=== PATIENT | male | born 1975 | race Caucasian/White ===

== ENCOUNTER 2021-07-10 09:34 | Inpatient (IN) | payer MEDICAID ==
[~2021-07-10] VITALS: Ht 182.9 cm; Wt 150.0 kg
[2021-07-10] MEDS ORDERED: aspirin 81mg tab.chew PO ONE (09:50)
[2021-07-10] MEDS ORDERED: nitroGLYCERIN 0.4mg SUBLingual tab SL PRN (09:50)
--- NOTE | 2021-07-10 09:52 | NUR ---
LAB AT BEDSIDE
[2021-07-10 10:06] LABS: BASOPHILS % (AUTO) 0.5 % (0-1); EOSINOPHILS # (AUTO) 0.1 X10'3 (0-0.9); EOSINOPHILS % (AUTO) 0.9 % (0-6); HEMATOCRIT 40.3 % (42.0-52.0); HEMOGLOBIN 13.6 g/dl (14.0-17.9); LYMPHOCYTES # (AUTO) 1.1 X10'3 (1.1-4.8); LYMPHOCYTES % (AUTO) 15.3 % (21-51); MEAN CORPUSCULAR HEMOGLOBIN 28.7 PG (27.0-31.0); MEAN CORPUSCULAR HGB CONC 33.7 g/dL (33.0-36.5); MEAN CORPUSCULAR VOLUME 85.2 FL (78-98); MEAN PLATELET VOLUME 7.5 FL (7.4-10.4); MONOCYTES # (AUTO) 0.7 X10'3 (0-0.9); MONOCYTES % (AUTO) 10.7 % (2-12); NEUTROPHILS % (AUTO) 72.6 % (42-75); PLATELET COUNT 174 X10'3 (140-440); RED BLOOD COUNT 4.73 X10'6 (4.70-6.10); RED CELL DISTRIBUTION WIDTH 14.2 % (11.5-14.5); WHITE BLOOD COUNT 6.9 X10'3 (4.5-11.0)
[2021-07-10 10:23] LABS: ALANINE AMINOTRANSFERASE 204 U/L (12-78); ALBUMIN 4.2 G/DL (3.4-5.0); ALBUMIN/GLOBULIN RATIO 1.2 (1.1-1.5); ALKALINE PHOSPHATASE 179 IU/L (46-116); ANION GAP 15 (8-16); ASPARTATE AMINO TRANSFERASE 206 U/L (10-37); BILIRUBIN,TOTAL 1.2 MG/DL (0.1-1.0); BLOOD UREA NITROGEN 16 MG/DL (7-18); CALCIUM 9.3 MG/DL (8.5-10.1); CHLORIDE 101 MMOL/L (99-107); GLUCOSE 100 MG/DL (70-104); POTASSIUM 4.2 MMOL/L (3.5-5.1); SODIUM 138 MMOL/L (135-145); TOTAL CARBON DIOXIDE 22.3 MMOL/L (24-32); TOTAL PROTEIN 7.6 G/DL (6.4-8.2); eGFR > 90 ML/MIN
[2021-07-10 10:53] LABS: D-DIMER 8.52 MG/L FEU (0-0.50)
[2021-07-10] MEDS ORDERED: iohexol 350MG/ML 100ml bottle IV ONE (11:23)
[2021-07-10] MEDS ORDERED: piperacillin/tazo 3.375gm/50ml 50 ML IV ONE (13:10)
[2021-07-10] MEDS ORDERED: SINCALIDE IV ONE (13:20)
[2021-07-10] MEDS ORDERED: NORMAL SALINE IV ONE (13:20)
--- NOTE | 2021-07-10 13:52 | NUR ---
pt to hida scan via wheelchair.
[2021-07-10] MEDS ORDERED: ROSU40TA22 PO (14:24)
[2021-07-10] MEDS ORDERED: PIOG45TA65 PO (14:24)
[2021-07-10] MEDS ORDERED: EMPA25TA PO (14:24)
[2021-07-10] MEDS ORDERED: CARV25TA2 PO (14:24)
[2021-07-10] MEDS ORDERED: HYDR50TA65 PO (14:24)
[2021-07-10] MEDS ORDERED: EZET10TA48 PO (14:24)
[2021-07-10] MEDS ORDERED: LOSA100T57 PO (14:24)
[2021-07-10] MEDS ORDERED: HYDROmorphone inj. 0.5 MG/0.5 ML DISP.SYRIN IV PRN (14:45)
[2021-07-10] MEDS ORDERED: HYDROmorphone/PF 0.2 MG/ML SYRINGE IV PRN (14:45)
[2021-07-10] MEDS ORDERED: magnesium hydroxide 30ml (MOM) UD suspension PO PRN (14:45)
[2021-07-10] MEDS ORDERED: magnesium 4gm in 100ml NS 100 ML IV PRN (14:45)
[2021-07-10] MEDS ORDERED: ondansetron/PF 4mg/2ml inj IV PRN (14:45)
[2021-07-10] MEDS ORDERED: potassium Cl 20 mEq SR tablet PO PRN ×2 (14:45)
[2021-07-10] MEDS ORDERED: mag hydrox/Alum hydrox/simeth 30ml oral suspension PO PRN (14:45)
[2021-07-10] MEDS ORDERED: bisacodyl 10mg suppository rectal RC PRN (14:45)
[2021-07-10] MEDS ORDERED: magnesium Cl slow-release 64mg tablet PO PRN (14:45)
[2021-07-10] MEDS ORDERED: potassium CL 10mEq/100ml bag 100 ML IV PRN (14:45)
[2021-07-10] MEDS ORDERED: acetaminophen 325mg tablet PO PRN (14:45)
[2021-07-10] MEDS ORDERED: metoclopramide 5 mg/ml inj IV PRN (14:45)
[2021-07-10] MEDS ORDERED: ondansetron 4mg rapidly disintigrating tab PO PRN (14:45)
[2021-07-10] MEDS ORDERED: magnesium 2GM in 50ml NS 50 ML IV PRN (14:45)
--- NOTE | 2021-07-10 15:39 | NUR ---
given at [facility]
[2021-07-10] MEDS ORDERED: INSU100I31 SQ (16:07)
[2021-07-10] MEDS ORDERED: SEMA1PEN3 SQ (16:07)
[2021-07-10 16:12] LABS: CHOL/HDL RATIO 2.5 (0.00-4.99); CHOLESTEROL 82 MG/DL (0-200); HDL CHOLESTEROL 33 MG/DL (35-60); LDL CHOLESTEROL 34 MG/DL (50-100); MAGNESIUM 1.9 MG/DL (1.5-2.4); TRIGLYCERIDES 102 MG/DL (20-135)
[2021-07-10] MEDS ORDERED: MESSAGE TO PHARMACY PO ONE (16:25)
[2021-07-10] MEDS ORDERED: insulin Lispro (HumaLOG) vial - multi-dose SQ SCH (16:25)
[2021-07-10] MEDS ORDERED: PERFLUTREN PROTEIN-A MICROSPHR (Optison) 0.22 MG/ML 3ML VIAL IV ONE (16:25)
[2021-07-10] MEDS ORDERED: glucagon, human recombinant 1mg kit SUBCUT PRN (16:25)
[2021-07-10] MEDS ORDERED: dextrose ORAL solution 15 GM/59 ML bottle PO PRN ×2 (16:25)
[2021-07-10] MEDS ORDERED: dextrose 50%-water 50ml dispensing syringe IV PRN ×2 (16:25)
[2021-07-10 16:42] LABS: HEMOGLOBIN A1C 6.3 % (4.5-6.2)
[2021-07-10 17:36] LABS: APTT 29 SECONDS (22-32)
[2021-07-10] MEDS: docusate sod 100mg capsule PO SCH (19:09)
[2021-07-10] MEDS: K and/or MAG REPLACEMENT MC SCH (19:09)
[2021-07-10] MEDS: carVEDilol 12.5mg tablet PO SCH (20:08)
[2021-07-10] MEDS: hydrOXYzine 25 MG tablet PO SCH (20:08)
[2021-07-10 21:00] VITALS: BP 128/78
[2021-07-10] MEDS: insulin glargine (Lantus) pen - multi-dose SQ SCH (21:00)
[2021-07-10] MEDS ORDERED: temazepam 15mg capsule PO PRN (21:00)
[2021-07-11] VITALS (8 sets, daily range): BP systolic 104–148; BP diastolic 72–98
--- NOTE | 2021-07-11 06:15 | NUR ---
Patient in room [facility] 348. I have received report from Morro MULLIGAN Traveler and had the opportunity to ask questions and assume patient care.
[2021-07-11 06:22] LABS: BASOPHILS % (AUTO) 0.3 % (0-1); EOSINOPHILS # (AUTO) 0.1 X10'3 (0-0.9); EOSINOPHILS % (AUTO) 1.2 % (0-6); HEMATOCRIT 35.7 % (42.0-52.0); HEMOGLOBIN 12.2 g/dl (14.0-17.9); LYMPHOCYTES # (AUTO) 1.2 X10'3 (1.1-4.8); LYMPHOCYTES % (AUTO) 18.9 % (21-51); MEAN CORPUSCULAR HEMOGLOBIN 29.1 PG (27.0-31.0); MEAN CORPUSCULAR VOLUME 85.4 FL (78-98); MONOCYTES # (AUTO) 0.7 X10'3 (0-0.9); MONOCYTES % (AUTO) 10.9 % (2-12); NEUTROPHILS # (AUTO) 4.3 X10'3 (1.8-7.7); NEUTROPHILS % (AUTO) 68.7 % (42-75); PLATELET COUNT 140 X10'3 (140-440); RED BLOOD COUNT 4.18 X10'6 (4.70-6.10); RED CELL DISTRIBUTION WIDTH 14.5 % (11.5-14.5); WHITE BLOOD COUNT 6.2 X10'3 (4.5-11.0)
[2021-07-11 06:23] LABS: APTT 31 SECONDS (22-32)
--- NOTE | 2021-07-11 06:28 | NUR ---
PT HAS BEEN NPO SINCE MIDNIGHT
[2021-07-11 06:30] LABS: ALANINE AMINOTRANSFERASE 189 U/L (12-78); ALBUMIN 3.5 G/DL (3.4-5.0); ALBUMIN/GLOBULIN RATIO 1.2 (1.1-1.5); ALKALINE PHOSPHATASE 152 IU/L (46-116); ANION GAP 12 (8-16); ASPARTATE AMINO TRANSFERASE 197 U/L (10-37); BILIRUBIN,TOTAL 0.9 MG/DL (0.1-1.0); BLOOD UREA NITROGEN 14 MG/DL (7-18); BUN/CREATININE RATIO 20.3 (5.4-32.0); CALCIUM 8.6 MG/DL (8.5-10.1); CHLORIDE 103 MMOL/L (99-107); CHOL/HDL RATIO 2.5 (0.00-4.99); CHOLESTEROL 74 MG/DL (0-200); CREATININE 0.69 MG/DL (0.60-1.10); GLUCOSE 67 MG/DL (70-104); HDL CHOLESTEROL 30 MG/DL (35-60); LDL CHOLESTEROL 29 MG/DL (50-100); MAGNESIUM 1.8 MG/DL (1.5-2.4); POTASSIUM 3.8 MMOL/L (3.5-5.1); SODIUM 139 MMOL/L (135-145); TOTAL CARBON DIOXIDE 23.7 MMOL/L (24-32); TOTAL PROTEIN 6.5 G/DL (6.4-8.2); TRIGLYCERIDES 98 MG/DL (20-135); eGFR > 90 ML/MIN
--- NOTE | 2021-07-11 07:32 | NUR ---
Diabetes consult: Noted A1C 6.3 DM ed not indicated at this time. Addendum: 07/11/21 at [address] Amended: Links added.
[2021-07-11] MEDS: Empagliflozin (Jardiance) 25 MG TAB PO SCH (08:00)
[2021-07-11] MEDS: pioglitazone 45mg tablet PO SCH (08:00)
[2021-07-11] MEDS: K and/or MAG REPLACEMENT MC SCH ×2 (08:00→19:47)
[2021-07-11] MEDS: ezetimibe 10mg tablet PO SCH (09:32)
[2021-07-11] MEDS: carVEDilol 12.5mg tablet PO SCH ×2 (09:33→19:50)
[2021-07-11] MEDS: losartan 50mg tablet PO SCH (09:33)
[2021-07-11] MEDS: docusate sod 100mg capsule PO SCH ×2 (09:36→19:50)
[2021-07-11] MEDS: dextrose 5%-1/2 normal saline 1,000 ML IV SCH (09:38)
--- NOTE | 2021-07-11 12:36 | NUR ---
PAGER ID: [phone] MESSAGE: Tommy Craig#[id number]- Pt states he has been trying to quit smoking 30 cigs per day "cold turkey" since 07/06 but still having anxiety. can we get a nicotine patch please. thank you. Neha Dior
[2021-07-11] MEDS ORDERED: fentaNYL/PF 50MCG/1 ML 2ML syringe ONE (14:06)
[2021-07-11] MEDS ORDERED: MIDAZolam 1 MG/ML 5ML VIAL ONE (14:06)
[2021-07-11] MEDS ORDERED: LIDOcaine Viscous 15ml cup ONE (14:07)
--- NOTE | 2021-07-11 18:10 | NUR ---
Problems reprioritized. Patient report given, questions answered & plan of care reviewed with Morro MULLIGAN Traveler.
[2021-07-11] MEDS: insulin glargine (Lantus) pen - multi-dose SQ SCH (21:00)
[2021-07-11] MEDS: hydrOXYzine 25 MG tablet PO SCH (22:19)
[2021-07-12] VITALS: BP 114/74
[2021-07-12] MEDS: dextrose 5%-1/2 normal saline 1,000 ML IV SCH (01:17)
[2021-07-12 06:21] LABS: BASOPHILS % (AUTO) 0.5 % (0-1); EOSINOPHILS # (AUTO) 0.1 X10'3 (0-0.9); EOSINOPHILS % (AUTO) 1.2 % (0-6); HEMATOCRIT 36.1 % (42.0-52.0); HEMOGLOBIN 12.1 g/dl (14.0-17.9); LYMPHOCYTES # (AUTO) 0.9 X10'3 (1.1-4.8); LYMPHOCYTES % (AUTO) 17.2 % (21-51); MEAN CORPUSCULAR HEMOGLOBIN 28.5 PG (27.0-31.0); MEAN CORPUSCULAR HGB CONC 33.6 g/dL (33.0-36.5); MEAN CORPUSCULAR VOLUME 84.9 FL (78-98); MEAN PLATELET VOLUME 7.6 FL (7.4-10.4); MONOCYTES # (AUTO) 0.6 X10'3 (0-0.9); MONOCYTES % (AUTO) 11.3 % (2-12); NEUTROPHILS # (AUTO) 3.8 X10'3 (1.8-7.7); NEUTROPHILS % (AUTO) 69.8 % (42-75); PLATELET COUNT 131 X10'3 (140-440); RED BLOOD COUNT 4.25 X10'6 (4.70-6.10); RED CELL DISTRIBUTION WIDTH 14.3 % (11.5-14.5); WHITE BLOOD COUNT 5.4 X10'3 (4.5-11.0)
[2021-07-12 06:24] LABS: APTT 30 SECONDS (22-32)
[2021-07-12 06:31] LABS: ALANINE AMINOTRANSFERASE 174 U/L (12-78); ALBUMIN 3.3 G/DL (3.4-5.0); ALBUMIN/GLOBULIN RATIO 1.1 (1.1-1.5); ALKALINE PHOSPHATASE 155 IU/L (46-116); ANION GAP 11 (8-16); ASPARTATE AMINO TRANSFERASE 176 U/L (10-37); BILIRUBIN,TOTAL 0.8 MG/DL (0.1-1.0); BLOOD UREA NITROGEN 11 MG/DL (7-18); BUN/CREATININE RATIO 15.9 (5.4-32.0); CALCIUM 8.7 MG/DL (8.5-10.1); CHLORIDE 104 MMOL/L (99-107); CREATININE 0.69 MG/DL (0.60-1.10); GLUCOSE 100 MG/DL (70-104); MAGNESIUM 1.8 MG/DL (1.5-2.4); POTASSIUM 3.9 MMOL/L (3.5-5.1); SODIUM 139 MMOL/L (135-145); TOTAL CARBON DIOXIDE 24.4 MMOL/L (24-32); TOTAL PROTEIN 6.4 G/DL (6.4-8.2); eGFR > 90 ML/MIN
[2021-07-12 07:05] VITALS: BP 132/86
[2021-07-12 07:11] LABS: AFP,SERUM, TUMOR MARKER 3.1 ng/mL (0.0-8.3)
[2021-07-12] MEDS: Empagliflozin (Jardiance) 25 MG TAB PO SCH (08:00)
[2021-07-12] MEDS: K and/or MAG REPLACEMENT MC SCH (08:00)
[2021-07-12] MEDS: pioglitazone 45mg tablet PO SCH (08:00)
[2021-07-12] MEDS: ezetimibe 10mg tablet PO SCH (08:01)
[2021-07-12] MEDS: carVEDilol 12.5mg tablet PO SCH (08:01)
[2021-07-12] MEDS: docusate sod 100mg capsule PO SCH (08:01)
[2021-07-12] MEDS: losartan 50mg tablet PO SCH (08:01)
[2021-07-12 11:39] VITALS: BP 153/73
--- NOTE | 2021-07-12 12:40 | NUR ---
patient stable and appropriate for discharge home. IV removed, all belongings taken from room. All discharge instructions and education given and reviewed with patient, all questions answered. Patient is aware of the need/importance for f/u appointments.
== END 2021-07-12 12:46 | disposition home or self-care (01) | DRG 281 ==
LOC: ER 09:35 → ED HOLD 14:53 → EDBEDREQ 20:00 → SUR 3N 21:00
PROVIDERS: ADMIT Family Medicine; ATTEND Family Medicine
PROC: B32T1ZZ Computerized Tomography (CT Scan) of Left Pulmonary Artery using Low Osmolar Contrast (ICD-10-PCS; 2021-07-10)
PROC: B3201ZZ Computerized Tomography (CT Scan) of Thoracic Aorta using Low Osmolar Contrast (ICD-10-PCS; 2021-07-10)
PROC: B32S1ZZ Computerized Tomography (CT Scan) of Right Pulmonary Artery using Low Osmolar Contrast (ICD-10-PCS; 2021-07-10)
PROC: BW211ZZ Computerized Tomography (CT Scan) of Abdomen and Pelvis using Low Osmolar Contrast (ICD-10-PCS; 2021-07-10)
PROC: CF1C1ZZ Planar Nuclear Medicine Imaging of Hepatobiliary System, All using Technetium 99m (Tc-99m) (ICD-10-PCS; 2021-07-10)
PROC: 0DB48ZX Excision of Esophagogastric Junction, Via Natural or Artificial Opening Endoscopic, Diagnostic (ICD-10-PCS; principal; 2021-07-11)
PROC: 0DB68ZX Excision of Stomach, Via Natural or Artificial Opening Endoscopic, Diagnostic (ICD-10-PCS; 2021-07-11)
PROC: 0DB38ZX Excision of Lower Esophagus, Via Natural or Artificial Opening Endoscopic, Diagnostic (ICD-10-PCS; 2021-07-11)
PROC: 5A09357 Assistance with Respiratory Ventilation, Less than 24 Consecutive Hours, Continuous Positive Airway Pressure (ICD-10-PCS; 2021-07-12)
DX: C78.7 Secondary malignant neoplasm of liver and intrahepatic bile duct (principal); E11.9 Type 2 diabetes mellitus without complications; E78.00 Pure hypercholesterolemia, unspecified; K22.9 Disease of esophagus, unspecified; R74.01 Elevation of levels of liver transaminase levels; R59.0 Localized enlarged lymph nodes; K44.9 Diaphragmatic hernia without obstruction or gangrene; K29.70 Gastritis, unspecified, without bleeding; E78.5 Hyperlipidemia, unspecified; I10 Essential (primary) hypertension; K80.20 Calculus of gallbladder without cholecystitis without obstruction; Z79.4 Long term (current) use of insulin
CPT/HCPCS: 36415; 43239; 71045; 71275; 74177; 76700; 78226; 80053; 80061; 82103; 82378; 82948; 83036; 83735; 83880; 84439; 84443; 84484; 85025; 85379; 85610; 85730; 86301; 87081; 93005; 93306; 93970; 94660; 96365; 99152; 99285; A4620; A9537; G0378; J1170; J1815; J2250; J2543; J3010; J7040; J7042; Q0177; Q9967

== ENCOUNTER 2021-07-21 13:36 | Emergency (ER) | payer OTHER, MEDICAID ==
[~2021-07-21] VITALS: Ht 182.9 cm; Wt 145.4 kg
[~2021-07-21 13:36] MED LIST: CARV25TA2 PO; EMPA25TA PO; HYDR50TA65 PO; LOSA100T57 PO
[2021-07-21] MEDS ORDERED: normal saline 1000ML IV soln IVB ONE (15:10)
[2021-07-21] MEDS ORDERED: ondansetron/PF 4mg/2ml inj IV ONE (15:10)
[2021-07-21] MEDS ORDERED: morphine 4 MG/ML inj SYRINge IV ONE (15:10)
[2021-07-21 15:40] LABS: BASOPHILS % (AUTO) 0.3 % (0-1); EOSINOPHILS % (AUTO) 0.4 % (0-6); HEMATOCRIT 39.3 % (42.0-52.0); LYMPHOCYTES % (AUTO) 9.9 % (21-51); MEAN CORPUSCULAR HEMOGLOBIN 28.7 PG (27.0-31.0); MEAN CORPUSCULAR VOLUME 86.7 FL (78-98); MEAN PLATELET VOLUME 8.5 FL (7.4-10.4); MONOCYTES # (AUTO) 1.2 X10'3 (0-0.9); MONOCYTES % (AUTO) 12.6 % (2-12); NEUTROPHILS # (AUTO) 7.4 X10'3 (1.8-7.7); NEUTROPHILS % (AUTO) 76.8 % (42-75); PLATELET COUNT 249 X10'3 (140-440); RED BLOOD COUNT 4.53 X10'6 (4.70-6.10); RED CELL DISTRIBUTION WIDTH 15.2 % (11.5-14.5); WHITE BLOOD COUNT 9.7 X10'3 (4.5-11.0)
[2021-07-21 15:58] LABS: ALANINE AMINOTRANSFERASE 680 U/L (12-78); ALBUMIN 3.3 G/DL (3.4-5.0); ALBUMIN/GLOBULIN RATIO 0.9 (1.1-1.5); ALKALINE PHOSPHATASE 451 IU/L (46-116); ANION GAP 19 (8-16); ASPARTATE AMINO TRANSFERASE 907 U/L (10-37); BILIRUBIN,TOTAL 2.4 MG/DL (0.1-1.0); BLOOD UREA NITROGEN 29 MG/DL (7-18); BUN/CREATININE RATIO 29.3 (5.4-32.0); CALCIUM 10.2 MG/DL (8.5-10.1); CHLORIDE 96 MMOL/L (99-107); CREATININE 0.99 MG/DL (0.60-1.10); GLUCOSE 124 MG/DL (70-104); POTASSIUM 4.6 MMOL/L (3.5-5.1); SODIUM 134 MMOL/L (135-145); TOTAL CARBON DIOXIDE 18.8 MMOL/L (24-32); TOTAL PROTEIN 6.9 G/DL (6.4-8.2); eGFR 81 ML/MIN
[2021-07-21 16:01] LABS: LIPASE 58 U/L (73-393)
[2021-07-21] MEDS ORDERED: KETAMINE IV ONE (17:00)
[2021-07-21] MEDS ORDERED: NORMAL SALINE IV ONE (17:00)
[2021-07-21] MEDS ORDERED: SEMA1PEN3 SQ (17:40)
[2021-07-21] MEDS ORDERED: MORP15TA PO (17:58)
[2021-07-21] MEDS ORDERED: ONDA8TAB13 PO (17:58)
[2021-07-21 18:38] VITALS: BP 107/62
== END 2021-07-21 18:35 | disposition home or self-care (01) ==
LOC: ER 13:37
DX: R10.11 Right upper quadrant pain (principal); R06.02 Shortness of breath; R11.0 Nausea; E78.00 Pure hypercholesterolemia, unspecified; I10 Essential (primary) hypertension; E11.9 Type 2 diabetes mellitus without complications; Z85.9 Personal history of malignant neoplasm, unspecified; Z79.899 Other long term (current) drug therapy
CPT/HCPCS: 36415; 80053; 83690; 84145; 84484; 85025; 93005; 96361; 96374; 96375; 99284; J2405; J3490; J7030

== ENCOUNTER 2021-07-24 16:46 | Inpatient (IN) | payer OTHER, MEDICAID ==
[~2021-07-24] VITALS: Ht 182.9 cm; Wt 157.1 kg
[~2021-07-24 16:46] MED LIST changes: +MORP15TA PO; +ONDA8TAB13 PO; +SEMA1PEN3 SQ; +micafungin inj 100 MG in normal saline 100ml IV soln 100 ML IV ONE
[2021-07-24] MEDS ORDERED: ondansetron/PF 4mg/2ml inj IV ONE (17:35)
[2021-07-24] MEDS ORDERED: normal saline 1000ML IV soln IVB ONE ×2 (17:35→20:10)
[2021-07-24 18:04] LABS: EOSINOPHILS % (AUTO) 0.1 % (0-6); HEMATOCRIT 32.9 % (42.0-52.0); HEMOGLOBIN 10.7 g/dl (14.0-17.9); LYMPHOCYTES # (AUTO) 0.9 X10'3 (1.1-4.8); MEAN CORPUSCULAR HEMOGLOBIN 28.5 PG (27.0-31.0); MEAN CORPUSCULAR HGB CONC 32.6 g/dL (33.0-36.5); MEAN PLATELET VOLUME 8.2 FL (7.4-10.4)
[2021-07-24 18:06] LABS: BASOPHILS % (AUTO) 0.2 % (0-1); LYMPHOCYTES % (AUTO) 4.5 % (21-51); MEAN CORPUSCULAR VOLUME 87.6 FL (78-98); MONOCYTES % (AUTO) 10.5 % (2-12); NEUTROPHILS # (AUTO) 16.5 X10'3 (1.8-7.7); NEUTROPHILS % (AUTO) 84.7 % (42-75); PLATELET COUNT 287 X10'3 (140-440); RED BLOOD COUNT 3.75 X10'6 (4.70-6.10); RED CELL DISTRIBUTION WIDTH 15.3 % (11.5-14.5); WHITE BLOOD COUNT 19.4 X10'3 (4.5-11.0)
[2021-07-24 18:09] LABS: APTT 35 SECONDS (22-32)
[2021-07-24 18:19] LABS: LACTIC SEPSIS 6.9 MMOL/L (0.4-2.0)
[2021-07-24 18:30] LABS: ALBUMIN 2.4 G/DL (3.4-5.0); ALKALINE PHOSPHATASE 623 IU/L (46-116); ANION GAP 24 (8-16); BILIRUBIN,TOTAL 5.3 MG/DL (0.1-1.0); BLOOD UREA NITROGEN 116 MG/DL (7-18); BUN/CREATININE RATIO 17.1 (5.4-32.0); CALCIUM 7.3 MG/DL (8.5-10.1); CHLORIDE 88 MMOL/L (99-107); GLUCOSE 188 MG/DL (70-104); LIPASE 160 U/L (73-393); SODIUM 126 MMOL/L (135-145); eGFR 9 ML/MIN
[2021-07-24 18:45] LABS: ALBUMIN/GLOBULIN RATIO 0.8 (1.1-1.5); TOTAL PROTEIN 5.3 G/DL (6.4-8.2)
[2021-07-24 19:05] LABS: ALANINE AMINOTRANSFERASE 2913 U/L (12-78); ASPARTATE AMINO TRANSFERASE 6727 U/L (10-37)
[2021-07-24 19:15] LABS: POTASSIUM 7.6 MMOL/L (3.5-5.1); TOTAL CARBON DIOXIDE 14.1 MMOL/L (24-32)
[2021-07-24] MEDS ORDERED: sodium bicarbonate (8.4%) 1 mEq/ml syringe IV ONE (19:40)
[2021-07-24] MEDS ORDERED: insulin regular, human U-100 3ml vial - multi-dose IV ONE (19:40)
[2021-07-24] MEDS ORDERED: sodium polystyrene sulfonate 15gm/60ml oral suspension PO ONE (19:40)
[2021-07-24] MEDS ORDERED: dextrose 50%-water 50ml dispensing syringe IV ONE (19:40)
[2021-07-24 19:54] LABS: ALBUMIN 2.4 G/DL (3.4-5.0); ALKALINE PHOSPHATASE 662 IU/L (46-116); ANION GAP 24 (8-16); BILIRUBIN,TOTAL 5.3 MG/DL (0.1-1.0); BLOOD UREA NITROGEN 110 MG/DL (7-18); BUN/CREATININE RATIO 15.8 (5.4-32.0); CALCIUM 7.5 MG/DL (8.5-10.1); CHLORIDE 89 MMOL/L (99-107); CREATININE 6.97 MG/DL (0.60-1.10); GLUCOSE 188 MG/DL (70-104); SODIUM 126 MMOL/L (135-145); eGFR 9 ML/MIN
[2021-07-24 19:56] LABS: ALANINE AMINOTRANSFERASE 3076 U/L (12-78); ALBUMIN/GLOBULIN RATIO 0.7 (1.1-1.5); TOTAL PROTEIN 5.7 G/DL (6.4-8.2)
[2021-07-24 20:02] LABS: TOTAL CARBON DIOXIDE 13.4 MMOL/L (24-32)
[2021-07-24 20:19] LABS: ASPARTATE AMINO TRANSFERASE > 7000 U/L (10-37)
[2021-07-24] MEDS ORDERED: piperacillin/tazo 3.375gm/50ml 50 ML IV ONE (20:20)
[2021-07-24 20:36] LABS: NUCLEATED RED BLOOD CELLS 2 /100WBC (0-0); TOTAL CELLS COUNTED 100
[2021-07-24 20:37] LABS: PLATELET ESTIMATE NORMAL
[2021-07-24] MEDS ORDERED: vancomycin/NS 1 GM ADD-VANTAGE 250 ML IV ONE (21:35)
[2021-07-24] MEDS ORDERED: magnesium hydroxide 30ml (MOM) UD suspension PO PRN (23:10)
[2021-07-24] MEDS ORDERED: ondansetron/PF 4mg/2ml inj IV PRN (23:10)
[2021-07-24] MEDS ORDERED: morphine 2 MG/ML inj. syringe IV PRN (23:10)
[2021-07-24] MEDS ORDERED: acetaminophen 325mg tablet PO PRN ×2 (23:10)
[2021-07-25] VITALS (61 sets, daily range): BP systolic 45–142; BP diastolic 34–96
[2021-07-25] MEDS ORDERED: micafungin inj 100 MG in normal saline 100ml IV soln 100 ML IV SCH ×2
[2021-07-25] MEDS ORDERED: micafungin inj 100 MG in normal saline 100ml IV soln 100 ML IV ONE ×2
[2021-07-25] MEDS ORDERED: vancomycin/NS 1 GM ADD-VANTAGE 250 ML IV PRN (00:20)
[2021-07-25] MEDS ORDERED: vancomycin/NS 1 GM ADD-VANTAGE 250 ML IV ONE (00:20)
[2021-07-25] MEDS: normal saline 1000ml 1,000 ML IV SCH ×3 (01:11→09:00)
[2021-07-25] MEDS: heparin, porcine 5000 units/ml vial SQ SCH ×3 (01:13→16:40)
[2021-07-25] MEDS ORDERED: MORP15TA PO (01:19)
[2021-07-25] MEDS ORDERED: MSC30T PO (01:19)
[2021-07-25] MEDS: cefepime 1GM in D5W 50mL 50 ML IV SCH ×2 (03:14→16:38)
[2021-07-25 04:09] LABS: ALBUMIN 2.3 G/DL (3.4-5.0); ALKALINE PHOSPHATASE 701 IU/L (46-116); ANION GAP 25 (8-16); BILIRUBIN,TOTAL 5.8 MG/DL (0.1-1.0); BLOOD UREA NITROGEN 122 MG/DL (7-18); BUN/CREATININE RATIO 15.7 (5.4-32.0); CALCIUM 6.8 MG/DL (8.5-10.1); CHLORIDE 89 MMOL/L (99-107); CREATININE 7.78 MG/DL (0.60-1.10); GLUCOSE 207 MG/DL (70-104); SODIUM 128 MMOL/L (135-145); VANCOMYCIN,RANDOM 17.7 UG/ML; eGFR 8 ML/MIN
[2021-07-25 04:10] LABS: ALANINE AMINOTRANSFERASE 3319 U/L (12-78); TOTAL PROTEIN 5.7 G/DL (6.4-8.2)
[2021-07-25 04:14] LABS: ALBUMIN/GLOBULIN RATIO 0.7 (1.1-1.5); POTASSIUM 7.2 MMOL/L (3.5-5.1); TOTAL CARBON DIOXIDE 14.4 MMOL/L (24-32)
[2021-07-25 04:32] LABS: ASPARTATE AMINO TRANSFERASE > 7000 U/L (10-37)
[2021-07-25] MEDS ORDERED: SODIUM ZIRCONIUM CYCLOSILICATE 10 GM POWD.PACK PO STA (04:43)
[2021-07-25] MEDS ORDERED: CALCIUM GLUC 1gm/50ml NACL,iso 100 ML IV STA (04:43)
[2021-07-25] MEDS ORDERED: albuterol 2.5 MG/3 ML nebule NEB ONE (04:45)
[2021-07-25] MEDS ORDERED: insulin regular, human 10 units/0.1 ml syringe IV ONE (04:45)
[2021-07-25] MEDS ORDERED: albuterol 2.5 MG/3 ML nebule CONTNEB ONE (05:00)
[2021-07-25 05:34] LABS: ABG BASE EXCESS -13.5 mmol/L (-2.0-2.0); ABG HCO3 12.2 mmol/L (22.0-26.0); ABG OXYGEN SATURATION 94.7 % (94-97); ABG PCO2 (T) 26.9 mmHg (35.0-48.0); ABG PO2 (T) 85.2 mmHg (75.0-100.0); ALLEN'S TEST POSITIVE; FCOHb 0.4 % (0.0-3.9); FMetHb 0.4 % (0.0-1.5); FO2Hb 93.9 % (94-97); PATIENT TEMPERATURE 35.9; TOTAL HEMOGLOBIN 11.3 G/dl (14.0-18.0)
[2021-07-25] MEDS ORDERED: sodium bicarb (8.4%) ped inj. 50 MEQ in normal saline 100ml IV soln 100 ML IV ONE (05:40)
[2021-07-25] MEDS ORDERED: sodium bicarbonate (8.4%) 1 mEq/ml syringe ONE (05:47)
--- NOTE | 2021-07-25 05:59 | NUR ---
Patient transfer fro Addendum: 07/25/21 at 0606 by Whitney El RN Patient transfer for ER to ICU with some abnormal labs, Tele doctor was called and she put in some orders for this patient, patient sleeping at this time will continue to monitor and report changes
--- NOTE | 2021-07-25 06:00 | NUR ---
Patient in room ICU 2044. I have received report from Whitney MULLIGAN and had the opportunity to ask questions and assume patient care.
[2021-07-25 06:13] LABS: BASOPHILS % (AUTO) 0.1 % (0-1); EOSINOPHILS % (AUTO) 0.1 % (0-6); HEMATOCRIT 31.1 % (42.0-52.0); HEMOGLOBIN 10.1 g/dl (14.0-17.9); LYMPHOCYTES # (AUTO) 0.9 X10'3 (1.1-4.8); LYMPHOCYTES % (AUTO) 4.2 % (21-51); MEAN CORPUSCULAR HEMOGLOBIN 28.4 PG (27.0-31.0); MEAN CORPUSCULAR HGB CONC 32.6 g/dL (33.0-36.5); MEAN CORPUSCULAR VOLUME 87.1 FL (78-98); MEAN PLATELET VOLUME 8.2 FL (7.4-10.4); MONOCYTES # (AUTO) 1.8 X10'3 (0-0.9); MONOCYTES % (AUTO) 8.4 % (2-12); NEUTROPHILS # (AUTO) 18.6 X10'3 (1.8-7.7); NEUTROPHILS % (AUTO) 87.2 % (42-75); PLATELET COUNT 302 X10'3 (140-440); RED BLOOD COUNT 3.57 X10'6 (4.70-6.10); RED CELL DISTRIBUTION WIDTH 15.9 % (11.5-14.5); WHITE BLOOD COUNT 21.3 X10'3 (4.5-11.0)
--- NOTE | 2021-07-25 07:00 | NUR ---
pt sleeping but easily arousable. continous nebulizer treatment present, pt has snoring respirations, blood pressure in the 90's appears to have been low since arrival. charge nurse Chandrika notified, per charge nurse Janitorial Maintenance Worker due to arrive at any moment, she will notify her upon arrival to the unit.
[2021-07-25] MEDS: sodium bicarbonate (8.4%) inj. 150 MEQ in dextrose 5%-water 1,000 ML IV SCH ×2 (07:10→16:38)
[2021-07-25] MEDS ORDERED: pantoprazole 40mg Tablet.DR PO SCH (07:30)
[2021-07-25] MEDS ORDERED: K and/or MAG REPLACEMENT MC SCH (08:00)
[2021-07-25 08:50] LABS: NUCLEATED RED BLOOD CELLS 3 /100WBC (0-0); TOTAL CELLS COUNTED 100
[2021-07-25 08:52] LABS: ANISOCYTOSIS FEW; ELLIPTOCYTES FEW; PLATELET ESTIMATE NORMAL; POLYCHROMASIA FEW
[2021-07-25 08:53] LABS: BURR CELLS 2+
[2021-07-25 08:54] LABS: LARGE PLATELETS FEW
[2021-07-25 09:28] LABS: ALBUMIN 2.2 G/DL (3.4-5.0); ANION GAP 22 (8-16); BLOOD UREA NITROGEN 121 MG/DL (7-18); BUN/CREATININE RATIO 15.2 (5.4-32.0); CALCIUM 6.5 MG/DL (8.5-10.1); CHLORIDE 91 MMOL/L (99-107); CREATININE 7.98 MG/DL (0.60-1.10); GLUCOSE 217 MG/DL (70-104); SODIUM 127 MMOL/L (135-145); eGFR 7 ML/MIN
[2021-07-25 09:29] LABS: TOTAL CARBON DIOXIDE 13.6 MMOL/L (24-32)
[2021-07-25 09:30] LABS: POTASSIUM 7.5 MMOL/L (3.5-5.1)
[2021-07-25] MEDS ORDERED: heparin 1,000unit/ml 10ml vial 10 ML IV ONE (10:25)
[2021-07-25] MEDS ORDERED: albumin (human) 25% 100ml IV 100 ML IV PRN (10:25)
[2021-07-25] MEDS ORDERED: heparin 1,000 units/ml 10ml inj IV ONE (10:25)
[2021-07-25] MEDS ORDERED: heparin 1,000 units/ml 10ml inj HE ONE ×2 (10:30)
[2021-07-25] MEDS: NORepinephrine 8mg/ 250ml NS 250 ML IV SCH ×2 (11:17→22:40)
--- NOTE | 2021-07-25 11:39 | NUR ---
Dr Neal inserted a 12 fr x 20 cm [employer] elite dialysis dual lumen catheter. reference number [id number] lot [id number] into patients right groin without difficulty.
[2021-07-25 14:30] LABS: ABG BASE EXCESS -6.8 mmol/L (-2.0-2.0); ABG HCO3 17.8 mmol/L (22.0-26.0); ABG OXYGEN SATURATION 96.9 % (94-97); ABG PCO2 (T) 31.5 mmHg (35.0-48.0); ABG PO2 (T) 94.1 mmHg (75.0-100.0); FCOHb 0.9 % (0.0-3.9); FLOW 10 L/min; FMetHb 0.3 % (0.0-1.5); FO2Hb 95.7 % (94-97); PATIENT TEMPERATURE 36.2; TOTAL HEMOGLOBIN 10.6 G/dl (14.0-18.0)
[2021-07-25 16:52] LABS: ALKALINE PHOSPHATASE 823 IU/L (46-116); ANION GAP 20 (8-16); BILIRUBIN,TOTAL 5.9 MG/DL (0.1-1.0); BLOOD UREA NITROGEN 82 MG/DL (7-18); BUN/CREATININE RATIO 14.6 (5.4-32.0); CALCIUM 6.5 MG/DL (8.5-10.1); CHLORIDE 95 MMOL/L (99-107); GLUCOSE 174 MG/DL (70-104); SODIUM 133 MMOL/L (135-145); TOTAL CARBON DIOXIDE 17.8 MMOL/L (24-32); eGFR 11 ML/MIN
[2021-07-25 17:22] LABS: ALANINE AMINOTRANSFERASE 3823 U/L (12-78); ALBUMIN/GLOBULIN RATIO 0.7 (1.1-1.5); ASPARTATE AMINO TRANSFERASE > 7000 U/L (10-37); TOTAL PROTEIN 4.8 G/DL (6.4-8.2)
--- NOTE | 2021-07-25 18:53 | NUR ---
Problems reprioritized. Patient report given, questions answered & plan of care reviewed with Whitney MULLIGAN.
[2021-07-25] MEDS ORDERED: normal saline 250ml IV soln 250 ML IV PRN (19:20)
--- NOTE | 2021-07-25 20:50 | NUR ---
Pt c/o shortness of breath, "I can't breath" pulling oxygen off. Skin pale, cool and diaphoretic. Sats decreasing to low 80's. Non-rebreather placed on pt. Rhythm changes observed on monitor. HR 140's-160's. Stat EKG obtained with abnormal findings. notified per charge nurse.
[2021-07-25 20:58] LABS: ABG BASE EXCESS -8.6 mmol/L (-2.0-2.0); ABG HCO3 16.4 mmol/L (22.0-26.0); ABG OXYGEN SATURATION 89.8 % (94-97); ABG PCO2 (T) 32.5 mmHg (35.0-48.0); ABG PO2 (T) 66.9 mmHg (75.0-100.0); FCOHb 1.1 % (0.0-3.9); FMetHb 0.6 % (0.0-1.5); FO2Hb 88.3 % (94-97); RESPIRATORY RATE 26 b/min; TOTAL HEMOGLOBIN 10.9 G/dl (14.0-18.0)
[2021-07-25] MEDS ORDERED: etomidate 2mg/ml inj. IV ONE (21:20)
[2021-07-25] MEDS ORDERED: propofol 1000mg/100ml bottle 100 ML IV SCH (21:20)
[2021-07-25] MEDS ORDERED: dexmedetomidin/NS 400mcg/100ml 100 ML IV SCH (21:20)
[2021-07-25] MEDS ORDERED: rocuronium 10mg/ml inj IV ONE (21:20)
[2021-07-25 21:21] LABS: BASOPHILS # (AUTO) 0.1 X10'3 (0-0.2); MEAN PLATELET VOLUME 7.7 FL (7.4-10.4)
[2021-07-25 21:22] LABS: BASOPHILS % (AUTO) 0.2 % (0-1); EOSINOPHILS # (AUTO) 0.2 X10'3 (0-0.9); EOSINOPHILS % (AUTO) 0.7 % (0-6); HEMATOCRIT 29.7 % (42.0-52.0); LYMPHOCYTES # (AUTO) 1.9 X10'3 (1.1-4.8); LYMPHOCYTES % (AUTO) 6.3 % (21-51); MEAN CORPUSCULAR HEMOGLOBIN 29.4 PG (27.0-31.0); MEAN CORPUSCULAR HGB CONC 33.6 g/dL (33.0-36.5); MEAN CORPUSCULAR VOLUME 87.7 FL (78-98); MONOCYTES # (AUTO) 2.7 X10'3 (0-0.9); MONOCYTES % (AUTO) 8.9 % (2-12); NEUTROPHILS # (AUTO) 25.7 X10'3 (1.8-7.7); NEUTROPHILS % (AUTO) 83.9 % (42-75); PLATELET COUNT 374 X10'3 (140-440); RED BLOOD COUNT 3.38 X10'6 (4.70-6.10); RED CELL DISTRIBUTION WIDTH 16.1 % (11.5-14.5)
[2021-07-25] MEDS ORDERED: clopidogrel 300mg tablet PO ONE (21:25)
[2021-07-25] MEDS ORDERED: aspirin 325mg tablet, delayed-release (Ecotrin) PO ONE (21:25)
--- NOTE | 2021-07-25 21:25 | NUR ---
Orders received for intubation. Spoke with pt's mother Opal Lima over the phone regarding patient's change of status. Inform Mrs. Lima about pt's respiratory distress and the preparation for intubation.
[2021-07-25 21:27] LABS: WHITE BLOOD COUNT 30.6 X10'3 (4.5-11.0)
[2021-07-25] MEDS ORDERED: aspirin 325mg tablet ONE (21:31)
[2021-07-25 21:37] LABS: ALKALINE PHOSPHATASE 999 IU/L (46-116); ANION GAP 21 (8-16); BILIRUBIN,TOTAL 7.3 MG/DL (0.1-1.0); BLOOD UREA NITROGEN 91 MG/DL (7-18); CALCIUM 6.1 MG/DL (8.5-10.1); CHLORIDE 93 MMOL/L (99-107); CREATININE 6.48 MG/DL (0.60-1.10); GLUCOSE 246 MG/DL (70-104); SODIUM 131 MMOL/L (135-145); TOTAL CARBON DIOXIDE 16.6 MMOL/L (24-32); eGFR 9 ML/MIN
--- NOTE | 2021-07-25 21:40 | NUR ---
Pt intubated per ER physician with a #8.0 ETT, 24 @ [facility].
[2021-07-25] MEDS ORDERED: alteplase 100MG inj. 100 ML IV ONE (21:45)
[2021-07-25 21:52] LABS: ALBUMIN/GLOBULIN RATIO 0.7 (1.1-1.5); TOTAL PROTEIN 4.7 G/DL (6.4-8.2)
[2021-07-25 21:53] LABS: ALANINE AMINOTRANSFERASE 4281 U/L (12-78)
[2021-07-25 21:55] LABS: ASPARTATE AMINO TRANSFERASE > 7000 U/L (10-37); NUCLEATED RED BLOOD CELLS 8 /100WBC (0-0); TOTAL CELLS COUNTED 100
[2021-07-25 21:56] LABS: ANISOCYTOSIS 1+; PLATELET ESTIMATE NORMAL; POLYCHROMASIA FEW
[2021-07-25 21:57] LABS: BURR CELLS 2+; TEAR DROP CELLS FEW
[2021-07-25 21:58] LABS: POTASSIUM 6.2 MMOL/L (3.5-5.1)
[2021-07-25 22:02] LABS: ABG BASE EXCESS -11.5 mmol/L (-2.0-2.0); ABG HCO3 15.3 mmol/L (22.0-26.0); ABG PO2 (T) 111.5 mmHg (75.0-100.0); FMetHb 0.9 % (0.0-1.5); FO2Hb 95.2 % (94-97); PEEP 5 cm H2O; RESPIRATORY RATE 22 b/min; TIDAL VOLUME 500 mL; TOTAL HEMOGLOBIN 10.9 G/dl (14.0-18.0)
[2021-07-25 22:02] LABS: LARGE PLATELETS FEW
--- NOTE | 2021-07-25 22:15 | NUR ---
Dr. Ozuna visit pt on [facility], reports he will notify mother of pt's worsening conditions.
[2021-07-25] MEDS ORDERED: vasopressin inj. 40 UNIT in dextrose 5%-water 50ml 38 ML IV SCH (22:30)
[2021-07-25] MEDS ORDERED: DOBUTamine-DoBUTrex 500mg/D5W 250 ML IV SCH (22:35)
[2021-07-25] MEDS ORDERED: ringers solution, lacted 1,000 ML IV ONE (22:40)
[2021-07-25] MEDS ORDERED: FENTANYL-0.9 % NACL/PF 100 ML IV SCH (22:40)
--- NOTE | 2021-07-25 23:15 | NUR ---
Family at bedside. Updated on pt's current status.
[2021-07-25] MEDS ORDERED: NORepinephrine 8mg/ 250ml NS 250 ML IV ONE (23:27)
[2021-07-25] MEDS ORDERED: epiNEPHrine inj 10 MG in normal saline 250ml IV soln 240 ML IV SCH (23:30)
[2021-07-25] MEDS ORDERED: NORepinephrine inj. 32 MG in normal saline 250ml IV soln 218 ML IV SCH (23:45)
--- NOTE | 2021-07-25 23:53 | NUR ---
Pt expires. Family at bedside.
[2021-07-26] MEDS ORDERED: micafungin inj 100 MG in normal saline 100ml IV soln 100 ML IV SCH ×2
[2021-07-26] MEDS ORDERED: VANCOMYCIN LEVEL IV SCH (03:00)
== END 2021-07-25 23:53 | DRG 208 ==
LOC: ER 16:47 → ED HOLD 23:27 → ICU 2S 07-25 01:19
PROVIDERS: ADMIT Internal Medicine Critical Care Medicine; ATTEND Internal Medicine Critical Care Medicine
PROC: 5A1935Z Respiratory Ventilation, Less than 24 Consecutive Hours (ICD-10-PCS; principal; 2021-07-25)
PROC: 0BH17EZ Insertion of Endotracheal Airway into Trachea, Via Natural or Artificial Opening (ICD-10-PCS; 2021-07-25)
PROC: 3E03317 Introduction of Other Thrombolytic into Peripheral Vein, Percutaneous Approach (ICD-10-PCS; 2021-07-25)
PROC: 06HY33Z Insertion of Infusion Device into Lower Vein, Percutaneous Approach (ICD-10-PCS; 2021-07-25)
PROC: 02H633Z Insertion of Infusion Device into Right Atrium, Percutaneous Approach (ICD-10-PCS; 2021-07-25)
PROC: B548ZZA Ultrasonography of Superior Vena Cava, Guidance (ICD-10-PCS; 2021-07-25)
PROC: 03HY32Z Insertion of Monitoring Device into Upper Artery, Percutaneous Approach (ICD-10-PCS; 2021-07-25)
PROC: 5A1D70Z Performance of Urinary Filtration, Intermittent, Less than 6 Hours Per Day (ICD-10-PCS; 2021-07-25)
DX: J69.0 Pneumonitis due to inhalation of food and vomit (principal); J96.01 Acute respiratory failure with hypoxia; I21.3 ST elevation (STEMI) myocardial infarction of unspecified site; C15.9 Malignant neoplasm of esophagus, unspecified; N17.9 Acute kidney failure, unspecified; Z68.42 Body mass index [BMI] 45.0-49.9, adult; C78.7 Secondary malignant neoplasm of liver and intrahepatic bile duct; E87.2 Acidosis; E11.9 Type 2 diabetes mellitus without complications; Z20.822 Contact with and (suspected) exposure to COVID-19; E66.01 Morbid (severe) obesity due to excess calories; E78.00 Pure hypercholesterolemia, unspecified; E87.5 Hyperkalemia; I10 Essential (primary) hypertension; R57.1 Hypovolemic shock; Z66 Do not resuscitate; Z79.899 Other long term (current) drug therapy
CPT/HCPCS: 36415; 36600; 71045; 74176; 80048; 80053; 80202; 82140; 82803; 82948; 83605; 83690; 83735; 84145; 84443; 84484; 85007; 85018; 85025; 85610; 85730; 87040; 87070; 87635; 93005; 94002; 94640; 94760; 99291; A7015; G0257; G0378; J0610; J0692; J1644; J1815; J2150; J2248; J2543; J2997; J3370; J3490; J7030; J7060; J7070; J7120